=== PATIENT | male | born 1980 | race Native Hawaiian/Other Pacific Islander ===

== ENCOUNTER 2016-08-23 09:27 | Emergency (ER) | payer OTHER ==
[~2016-08-23] VITALS: Ht 177.8 cm; Wt 74.8 kg
== END 2016-08-23 11:15 | disposition home or self-care (01) ==
LOC: ED 09:27
DX: T15.01XA Foreign body in cornea, right eye, initial encounter (principal); B35.6 Tinea cruris; L98.8 Other specified disorders of the skin and subcutaneous tissue
CPT/HCPCS: 99283

== ENCOUNTER 2017-05-09 10:41 | Emergency (ER) | payer OTHER ==
[~2017-05-09] VITALS: Ht 175.3 cm; Wt 74.8 kg
== END 2017-05-09 11:10 | disposition home or self-care (01) ==
LOC: ED 10:41
DX: M79.602 Pain in left arm (principal); M79.601 Pain in right arm
CPT/HCPCS: 99281

== ENCOUNTER 2017-11-06 11:26 | Emergency (ER) | payer OTHER ==
[~2017-11-06] VITALS: Ht 177.8 cm; Wt 65.8 kg
[2017-11-06 12:17] LABS: PLATELET COUNT 271 K/uL (142-355)
[2017-11-06 12:24] LABS: POTASSIUM 3.4 mmol/L (3.6-5.2)
[2017-11-06 12:58] VITALS: BP 108/65; TEMP 97.6
== END 2017-11-06 13:00 | disposition home or self-care (01) ==
LOC: ED 11:26
PROVIDERS: Family Medicine
DX: F19.10 Other psychoactive substance abuse, uncomplicated (principal)
CPT/HCPCS: 80053; 80307; 80320; 85027; 99283

== ENCOUNTER 2020-11-23 14:27 | Emergency (ER) | payer OTHER ==
[~2020-11-23] VITALS: Ht 177.8 cm; Wt 68.0 kg
[2020-11-23 14:30] VITALS: BP 114/85; TEMP 98.5
== END 2020-11-23 15:32 | disposition home or self-care (01) ==
LOC: ED 14:27
DX: S90.31XA Contusion of right foot, initial encounter (principal); V09.9XXA Pedestrian injured in unspecified transport accident, initial encounter; Y92.89 Other specified places as the place of occurrence of the external cause
CPT/HCPCS: 99283